=== PATIENT | female | born 1985 | race Caucasian/White ===

== ENCOUNTER 2017-05-04 11:04 | Emergency (ER) | payer OTHER ==
[2017-05-04] MEDS: IBUPROFEN 800 MG TAB PO (12:27)
== END 2017-05-04 14:00 | disposition home or self-care (01) ==
LOC: FTE 11:04
DX: S30.0XXA Contusion of lower back and pelvis, initial encounter (principal); W10.8XXA Fall (on) (from) other stairs and steps, initial encounter; Y92.9 Unspecified place or not applicable
CPT/HCPCS: 72100; 72220; 99284-25